=== PATIENT | female | born 1955 ===

== ENCOUNTER 2017-12-08 16:22 | Emergency (ER) | payer SELFPAY ==
[2017-12-08 16:22] VITALS: BMI 23.6
[2017-12-08 17:04] LABS: BASO # 0.1 K/uL (0.0-0.2); BASO % 0.9 % (0.0-2.0); EOS # 0.2 K/uL (0.0-0.7); EOS % 2.8 % (0.0-4.0); HEMOGLOBIN 14.5 g/dL (11.0-16.0); LYMPH # 2.8 K/uL (1.0-4.3); LYMPH % 40.6 % (20.0-40.0); MEAN CELL VOLUME 85.4 fL (81.0-99.0); MEAN CORPUSCULAR HEMOGLOBIN 28.3 pg (27.0-31.0); MEAN CORPUSCULAR HGB CONC 33.1 g/dL (33.0-37.0); MEAN PLATELET VOLUME 8.5 fL (7.2-11.7); MONO # 0.5 K/uL (0.0-0.8); MONO % 7.5 % (0.0-10.0); NEUT # 3.3 K/uL (1.8-7.0); NEUT % 48.2 % (50.0-75.0); NRBC % 0.1 % (0.0-2.0); RBC 5.12 Mil/uL (3.80-5.20); RED CELL DISTRIBUTION WIDTH 14.1 % (11.5-14.5); WHITE BLOOD COUNT 6.8 K/uL (4.8-10.8)
--- NOTE | 2017-12-08 17:08 | C.PDOC ---
History Of Present Illness 62 y/o F p/w suicidal ideation. Patient states she wishes to and asks not to be helped. States she wishes to be with her mother. Drank alcohol today. Denies HI or hallucinations. Denies fever, dyspnea, vomiting. Time Seen by Provider: 12/08/17 16:44 Chief Complaint (Nursing): Psychiatric Evaluation Past Medical History Vital Signs: Last Vital Signs Temp 97.5 F L 12/08/17 16:52 Pulse 92 H 12/08/17 16:52 Resp 18 12/08/17 16:52 BP 104/73 12/08/17 16:52 Pulse Ox 97 12/08/17 17:26 - Medical History PMH: Depression Family History: States: Unknown Family Hx - Social History Hx Tobacco Use: Yes Hx Alcohol Use: Yes Hx Substance Use: No - Immunization History Hx Tetanus Toxoid Vaccination: Yes Hx Influenza Vaccination: Yes Hx Pneumococcal Vaccination: Yes Review Of Systems Except As Marked, All Systems Reviewed And Found Negative. Constitutional: Negative for: Fever Respiratory: Negative for: Shortness of Breath Physical Exam - Physical Exam Additional Physical Exam Comments: Gen: NAD Head: NC ENT: MMM CV: Regular rate Resp: No accessory muscle use Neuro: Alert ED Course And Treatment - Laboratory Results Result Diagrams: 12/08/17 16:59 12/08/17 16:59 O2 Sat by Pulse Oximetry: 97 Medical Decision Making Medical Decision Making: Patient states she took pills at 11am today, about 6 hours ago. Acetaminophen level 15, nontoxic. Medically clear. Pending sobriety for psych re-eval. Sign out to ED night team. Disposition - Disposition Disposition Time: 18:28 Condition: STABLE Forms: [facility] (German) - Clinical Impression Clinical Impression: Depression
[2017-12-08 17:10] LABS: HCG,QUALITATIVE URINE NEGATIVE (NEGATIVE)
[2017-12-08 17:13] LABS: SQUAMOUS EPITHIAL < 1 /hpf (0-5); URINE BACTERIA RARE (<OCC); URINE BILIRUBIN NEGATIVE (NEGATIVE); URINE BLOOD NEGATIVE (NEGATIVE); URINE CLARITY Clear (Clear); URINE COLOR Colorless (YELLOW); URINE GLUCOSE (UA) NORMAL (Normal); URINE NITRATE NEGATIVE (NEGATIVE); URINE PROTEIN NEGATIVE (NEGATIVE); URINE UROBILINOGEN NORMAL mg/dL (0.2-1.0)
[2017-12-08 17:15] LABS: URINE LEUKOCYTE ESTERASE TRACE Leu/uL (Negative)
[2017-12-08 17:18] LABS: SALICYLATE < 1.0 mg/dL 1
[2017-12-08 17:19] LABS: ALB/GLOB RATIO 1.5 (1.0-2.1); ALBUMIN 4.5 g/dL (3.5-5.0); ALT/SGPT 35 U/L (9-52); AST/SGOT 49 U/L (14-36); BLOOD UREA NITROGEN 10 mg/dL (7-17); CALCIUM 9.9 mg/dl (8.6-10.4); GFR AFRICAN-AMERICAN > 60; GFR NON-AFRICAN AMERICAN > 60
[2017-12-08 17:20] LABS: BENZODIAZEPINES, UR NEGATIVE (NEGATIVE); OPIATES, UR NEGATIVE (NEGATIVE); PHENCYCLIDINE, UR NEGATIVE (NEGATIVE)
[2017-12-08 17:35] LABS: BARBITURATES, UR POSITIVE (NEGATIVE)
[2017-12-08 19:05] VITALS: RESP 16
[2017-12-09 02:16] VITALS: O2SAT 97
[2017-12-09 02:25] VITALS: TEMP 97.9
[2017-12-09 04:10] VITALS: BP 116/78; PULSE 58
--- NOTE | 2017-12-09 06:59 | RAD ---
Chest x-ray single frontal view History: Psychiatric clearance. Comparison: None available. Findings: No focal infiltrate or effusion. Heart size within normal limits. Impression: No focal infiltrate or effusion.
== END 2017-12-09 02:45 | disposition designated cancer center or children's hospital (05) ==
LOC: C.ER 16:22
DX: F32.9 Major depressive disorder, single episode, unspecified (principal)

== ENCOUNTER 2018-02-06 13:57 | Inpatient (IN) | payer SELFPAY ==
[2018-02-06 13:58] VITALS: BMI 23.6
[2018-02-06] MEDS ORDERED: Aspirin 325 mg EC Tablets PO STA (14:44)
[2018-02-06] MEDS ORDERED: Sodium Chloride 0.9% 1,000 ML IV ONE (14:44)
--- NOTE | 2018-02-06 14:47 | C.PDOC ---
History Of Present Illness 62 y/o, w/PMhx of depression, upon referral of medical clinic, presents to the ER for evaluation of left-sided chest pain which developed over the past week. Patient describes pain as aching,constant,left sided with intermittent radiation to the left scapular area. Pt admits, was taking Tylenol for pain without improvement. Patient denies having history of CAD in past, denies card. work up in past, denies headache, dizziness, visual changes, neck pain, SOB, dyspnea, cough, palpitations, diaphoresis, abdominal pain, vomiting, diarrhea, denies any other active complaints. Time Seen by Provider: 02/06/18 14:26 Chief Complaint (Nursing): Chest Pain History Per: Patient Onset/Duration Of Symptoms: Days Current Symptoms Are (Timing): Still Present Severity: Moderate Past Medical History Reviewed: Historical Data, Nursing Documentation, Vital Signs Vital Signs: Last Vital Signs Temp 98.3 F 02/06/18 14:24 Pulse 67 02/06/18 14:24 Resp 18 02/06/18 14:24 BP 141/86 02/06/18 14:24 Pulse Ox 97 02/06/18 15:52 - Medical History PMH: Depression Denies: Diabetes, Hepatitis, HIV, HTN, Seizures, Sexually Transmitted Disease Other Surgeries: Hx of surgeries - [facility] GROUP PSYCHOTHERAPY (12/09/17) Family History: States: No Known Family Hx - Social History Hx Tobacco Use: Yes Hx Alcohol Use: Yes Hx Substance Use: No - Immunization History Hx Tetanus Toxoid Vaccination: No Hx Influenza Vaccination: No Hx Pneumococcal Vaccination: No Review Of Systems Except As Marked, All Systems Reviewed And Found Negative. Constitutional: Negative for: Fever, Chills Cardiovascular: Positive for: Chest Pain. Negative for: Palpitations Respiratory: Negative for: Shortness of Breath Gastrointestinal: Negative for: Vomiting, Abdominal Pain, Diarrhea Musculoskeletal: Negative for: Neck Pain Neurological: Negative for: Headache, Dizziness Physical Exam - Physical Exam Appears: Well, Non-toxic, No Acute Distress Skin: Normal Color, Warm, Dry, No Rash, No Ecchymosis Eye(s): bilateral: PERRL Nose: No Flaring, No Discharge Oral Mucosa: Moist Throat: No Erythema, No Drooling Neck: Trachea Midline, Supple Chest: No Deformity, Tenderness (over Left anterior and lateral chest wall), No Ecchymosis, No Subcutaneous Emphysema Cardiovascular: Rhythm Regular, No Murmur, No JVD, Other ((-) carotid bruits B/L ) Respiratory: No Decreased Breath Sounds, No Accessory Muscle Use, No Stridor, No Wheezing Gastrointestinal/Abdominal: Soft, No Tenderness, No Distention, No Guarding Back: No Vertebral Tenderness, No Paraspinal Tenderness, Other (Left periscapular tenderness, no skin changes, no deformity.) Extremity: Normal ROM, No Pedal Edema, No Deformity, No Swelling ED Course And Treatment - Laboratory Results Result Diagrams: 02/06/18 15:04 02/06/18 15:04 Lab Interpretation: No Acute Changes ECG: Interpreted By Me, Viewed By Me ECG Rhythm: Sinus Rhythm Interpretation Of ECG: SR@64/min, NAD, no acute T wave or ST-T changes. O2 Sat by Pulse Oximetry: 97 (RA) Pulse Ox Interpretation: Normal - Radiology CXR: Interpreted by Me, Viewed By Me CXR Interpretation: Yes: No Acute Disease Progress Note: Labs and CXR ordered. Patient given Valium PO, Aspirin PO, IV Fluids, and Toradol IV. On re-eval, pt is afebrile, hemodynamicaly stable. Non -toxic. ENT: no acute findings. Neck: Supple, (-) JVD, (-) carotid bruits B/ L. CVS: (+)S1S2, reg. Abd: benign. CXR, EKG review and appears normal study. Blood work review- no acute finidngs. Troponin I - normal. Pt is 62 yo w/hx of high cholesterolemia, smoker, admit for card.work up. Case discussed with Hospitalist and admission arranged. Pt agrees with plan. Disposition - Disposition Disposition: HOSPITALIZED Disposition Time: 15:52 Condition: STABLE Forms: [facility] (Turkmen) - Clinical Impression Clinical Impression: Chest pain - PA / GUEST RELATIONS MANAGER / Resident Statement MD/DO has reviewed & agrees with the documentation as recorded. - Scribe Statement The provider has reviewed the documentation as recorded by the Kristieibe Sherly Newberry Provider Attestation All medical record entries made by the Scribe were at my direction and personally dictated by me. I have reviewed the chart and agree that the record accurately reflects my personal performance of the history, physical exam, medical decision making, and the department course for this patient. I have also personally directed, reviewed, and agree with the discharge instructions and disposition.
[2018-02-06 15:09] LABS: BASO % 0.7 % (0.0-2.0); EOS # 0.1 K/uL (0.0-0.7); EOS % 2.4 % (0.0-4.0); HEMOGLOBIN 13.1 g/dL (11.0-16.0); LYMPH # 1.2 K/uL (1.0-4.3); LYMPH % 19.5 % (20.0-40.0); MEAN CELL VOLUME 83.7 fL (81.0-99.0); MEAN CORPUSCULAR HEMOGLOBIN 27.9 pg (27.0-31.0); MEAN CORPUSCULAR HGB CONC 33.4 g/dL (33.0-37.0); MEAN PLATELET VOLUME 8.7 fL (7.2-11.7); MONO # 0.4 K/uL (0.0-0.8); MONO % 5.9 % (0.0-10.0); NEUT # 4.3 K/uL (1.8-7.0); NEUT % 71.5 % (50.0-75.0); RBC 4.68 Mil/uL (3.80-5.20); RED CELL DISTRIBUTION WIDTH 14.2 % (11.5-14.5)
[2018-02-06] MEDS ORDERED: Sodium Chloride 0.9% 1,000 ML ONE (15:09)
[2018-02-06] MEDS ORDERED: Aspirin 325 mg EC Tablets PO ONE (15:09)
[2018-02-06 15:17] LABS: INR 0.9; PROTHROMBIN TIME 10.4 SECONDS (9.7-12.2)
[2018-02-06 15:22] LABS: ALB/GLOB RATIO 1.4 (1.0-2.1); ALBUMIN 3.8 g/dL (3.5-5.0); ALT/SGPT 18 U/L (9-52); AST/SGOT 21 U/L (14-36); BLOOD UREA NITROGEN 8 mg/dL (7-17); CALCIUM 8.8 mg/dl (8.6-10.4); GFR AFRICAN-AMERICAN > 60; GFR NON-AFRICAN AMERICAN > 60
[2018-02-06 15:23] LABS: URINE BILIRUBIN NEGATIVE (NEGATIVE); URINE BLOOD NEGATIVE (NEGATIVE); URINE CLARITY Clear (Clear); URINE COLOR Straw (YELLOW); URINE GLUCOSE (UA) NORMAL (Normal); URINE LEUKOCYTE ESTERASE NEG Leu/uL (Negative); URINE PROTEIN NEGATIVE (NEGATIVE); URINE UROBILINOGEN NORMAL mg/dL (0.2-1.0)
--- NOTE | 2018-02-06 16:14 | RAD ---
HISTORY: Chest pain. COMPARISON: No prior. TECHNIQUE: Chest PA and lateral FINDINGS: LUNGS: No active pulmonary disease. PLEURA: No significant pleural effusion identified. No pneumothorax apparent. CARDIOVASCULAR: No radiographic findings to suggest acute or significant cardiovascular disease. OSSEOUS STRUCTURES: No significant abnormalities. VISUALIZED UPPER ABDOMEN: Normal. OTHER FINDINGS: None. IMPRESSION: No active disease. Concordant results with the preliminary interpretation rendered by the emergency department physician procedure.
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
[2018-02-06 20:12] LABS: CK-MB 0.23 ng/mL (0.0-3.38)
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
[2018-02-07 05:19] LABS: CK-MB < 0.22 ng/mL (0.0-3.38)
[2018-02-07 08:14] VITALS: RESP 18; O2SAT 98
[2018-02-07] MEDS ORDERED: Pneumococcal 23-Valent Vaccine IM ONE (10:00)
[2018-02-07] MEDS ORDERED: Enoxaparin 40 mg Syringe SC SCH (10:00)
[2018-02-07 11:02] VITALS: TEMP 99.3
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
[2018-02-07 12:28] VITALS: PULSE 93
[2018-02-07 12:30] VITALS: BP 105/72
--- NOTE | 2018-02-08 00:05 | CARD ---
APPROVED REPORT EKG Measurement Heart [id number] <Conclusion> Normal sinus rhythm Possible Left atrial enlargement Septal infarct, age undetermined Abnormal ECG
--- NOTE | 2018-02-08 00:05 | CARD ---
APPROVED REPORT EKG Measurement Heart [id number] <Conclusion> Normal sinus rhythm Normal ECG
== END 2018-02-07 12:42 | disposition home or self-care (01) | DRG 143 ==
LOC: C.ER 13:57 → C.6T 15:57 → C.9E 15:57
PROVIDERS: ADMIT Internal Medicine; ATTEND Internal Medicine
DX: R07.89 Other chest pain (principal); E78.5 Hyperlipidemia, unspecified; F32.9 Major depressive disorder, single episode, unspecified; F41.9 Anxiety disorder, unspecified; I10 Essential (primary) hypertension; E11.9 Type 2 diabetes mellitus without complications; F17.210 Nicotine dependence, cigarettes, uncomplicated

== ENCOUNTER 2018-09-17 23:22 | Emergency (ER) | payer SELFPAY ==
[2018-09-17 23:23] VITALS: BMI 23.6
[2018-09-17 23:44] VITALS: O2SAT 100
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
[2018-09-18 02:17] VITALS: BP 108/76; PULSE 94; TEMP 97.5
[2018-09-18 03:15] VITALS: RESP 16
--- NOTE | 2018-09-18 09:22 | CT ---
Date of service: 09/18/2018 PROCEDURE: CT HEAD WITHOUT CONTRAST. HISTORY: fall COMPARISON: None available. TECHNIQUE: Axial computed tomography images were obtained through the head/brain without intravenous contrast. Radiation dose: Total exam DLP = 1080.28 mGy-cm. This CT exam was performed using one or more of the following dose reduction techniques: Automated exposure control, adjustment of the mA and/or kV according to patient size, and/or use of iterative reconstruction technique. FINDINGS: HEMORRHAGE: No intracranial hemorrhage. BRAIN: No mass effect or edema. No atrophy or chronic microvascular ischemic changes. VENTRICLES: Unremarkable. No hydrocephalus. CALVARIUM: Unremarkable. PARANASAL SINUSES: Unremarkable as visualized. No significant inflammatory changes. MASTOID AIR CELLS: Unremarkable as visualized. No inflammatory changes. OTHER FINDINGS: Mild soft tissue swelling overlying the left frontal cranium. IMPRESSION: No acute intracranial abnormality. Mild soft tissue swelling overlying the left frontal cranium. If symptoms persists, consider correlation with MRI. A preliminary report was generated at 2:22 a.m. on 09/18/[address] Agustín Michaels from [employer].
--- NOTE | 2018-09-18 12:58 | CT ---
Date of service: 09/18/2018 PROCEDURE: CT MAXILLOFACIAL BONES WITHOUT CONTRAST HISTORY: fall COMPARISON: None available. TECHNIQUE: Contiguous axial CT images of the maxillofacial bones were obtained. Coronal and sagittal reformats were generated. Radiation dose: Total exam DLP = 915.19 mGy-cm. This CT exam was performed using one or more of the following dose reduction techniques: Automated exposure control, adjustment of the mA and/or kV according to patient size, and/or use of iterative reconstruction technique. FINDINGS: NASAL BONES: Unremarkable. ORBITS: Unremarkable. PARANASAL SINUSES/ MASTOIDS: Clear. MAXILLA: Unremarkable. MANDIBLE/ TEMPOROMANDIBULAR JOINTS: Unremarkable. SKULL BASE: Unremarkable. TEMPORAL BONES: Middle ears and mastoid grossly unremarkable. OTHER FINDINGS: None. IMPRESSION: No fracture.
--- NOTE | 2018-09-18 13:04 | CT ---
Date of service: 09/18/2018 PROCEDURE: CT Cervical Spine without contrast HISTORY: fall COMPARISON: None available. TECHNIQUE: Axial computed tomography images were obtained of the cervical spine without the use of intravenous contrast. Coronal and sagittal reformatted images were created and reviewed. Radiation dose: Total exam DLP = 630.22 mGy-cm. This CT exam was performed using one or more of the following dose reduction techniques: Automated exposure control, adjustment of the mA and/or kV according to patient size, and/or use of iterative reconstruction technique. FINDINGS: VERTEBRAE: No fracture. Normal alignment. No destructive bony lesion. DISCS/SPINAL CANAL/NEURAL FORAMINA: Multilevel degenerative disc disease. PARASPINAL SOFT TISSUES: Unremarkable. OTHER FINDINGS: None. IMPRESSION: No fracture.
== END 2018-09-18 03:03 | disposition home or self-care (01) ==
LOC: C.ER 23:22
DX: S00.83XA Contusion of other part of head, initial encounter (principal); W01.0XXA Fall on same level from slipping, tripping and stumbling without subsequent striking against object, initial encounter; F10.129 Alcohol abuse with intoxication, unspecified; Y90.9 Presence of alcohol in blood, level not specified